=== PATIENT | female | born 1965 | race Caucasian/White ===

== ENCOUNTER 2018-03-19 07:07 | Inpatient (IN) ==
--- NOTE | 2018-03-18 21:58 | Discharge Summary ---
<Dmitry Coughlin - Last Filed: 03/19/18 08:53> Orders not resulted at time of discharge: Pending orders 03/19/18 00:01 XR shoulder complete RT [XR] Routine H/H [Hemoglobin and Hematocrit] [HEME] Routine 03/19/18 08:09 US anesthesia pain block [US] Routine Date of Encounter: 03/19/18 - Hospital Course Hospital course: Ms. Key is a 52 year old female - Time Spent with Patient Total time spent providing and/or coordinating discharge services: - Discharge Medications Home Medications: Amitriptyline HCl 150 mg PO HS 03/03/17 [History] Methocarbamol [Robaxin-750] 750 mg PO TID 03/03/17 [History] Zolpidem [Ambien] 10 mg PO HS PRN 03/03/17 [History] OxyCODONE Immed Rel [Roxicodone 5 MG] 5 mg PO Q6HR PRN 7 Days #28 tablet [Rx] Acetaminophen/Butalbital/Caffe [Fioricet] 1 tab PO Q6HR PRN 03/19/18 [History] Atorvastatin Calcium [Lipitor] 20 mg PO HS 03/19/18 [History] Buspirone HCl [Buspar] 7.5 mg PO BID 03/19/18 [History] Celecoxib [Celebrex] 200 mg PO BID 03/19/18 [History] Quetiapine Fumarate [Seroquel] 200 mg PO HS 03/19/18 [History] Allergies/Adverse Reactions: 3 Allergy/AdvReac Type Severity Reaction Status Date / Time codeine AdvReac Nausea Verified 03/19/18 08:05 Primary care physician: Stormy Ramos - Patient Status Disposition: Home Health Service Condition: Good - Discharge Instructions Follow Up With: Stormy Ramos [Primary Care Provider] - Additional Instructions: Discharge Instructions: Total Shoulder Please call [facility] ([phone]), your Primary Care Physician, or report to the Emergency Room if you have any of the following symptoms: Nausea, vomiting, fever greater that 101.5, swelling, chest pain, shortness of breath, increased pain/redness/drainage/odor for your incision site, numbness/ tingling, or any other concerning symptoms. ACTIVITY: Always keep your arm in the sling. Do not raise your arm away from your body. Do not use your arm to help with getting in or out of bed. No weight bearing permitted. Only perform those exercises given to you by your therapist. Incentive Spirometer 10 times an hour. MEDICATIONS: Upon discharge resume your home medications. Take all the medications as prescribed. Take a stool softener if taking narcotic pain medications. Stool softeners are only effective if you drink enough fluids. Drink 6-8 glass of water or fluids a day, unless this is not allowed for another health problem. Despite using stool softeners, if you haven't had a bowel movement in 3 days, please switch to a gentle laxative. Gentle laxatives are sold over the counter. You should have a bowel movement within 24 hours, if not call the office. You will be discharged from the hospital with a prescription for pain medication. You are encouraged to decrease the use of narcotic pain medication as tolerated. Should you require a refill, please call the office. [facility] prescribes narcotic pain medication for only 4-6 weeks after surgery. If you require pain medication beyond this time period, you may be referred to your Primary Care Physician or to the Pain Clinic for further evaluation. Plan ahead for refills on pain medication as many narcotics either need to be picked up at the office or mailed. It is best to call 48-72 hours in advance of needing a prescription refill so you don't run out of medication. To help control the post-operative pain, you may take NSAIDs (Aleve,Advil, Motrin, Ibuprofen, Naprosyn) or Tylenol as prescribed on the bottle in addition to the pain medication. WOUND CARE: Leave the dressing on for 7-10 days. You may change the dressing if it becomes saturated greater than 50%. Do not get the dressing wet at anytime. Wash your hands with antibacterial soap, rinse and dry prior to any wound care. If you have estefany the visiting nurse or rehab facility can remove the stapes 10-14 days after surgery and place steri-strips across the wound. Leave the steri-strips in place until they fall off on their own. You may let water from the shower run on top of the steri-strips. If you do not have a visiting nurse or rehab facility, you will need to return to the office at 10-14 days for the estefany to be removed. If you have itching or redness around the dressing call the office. FOLLOW-UP: Please follow up with your surgeon in the orthopedic clinic, as scheduled <Cornelia Alvares - Last Filed: 03/19/18 17:26> Date of Encounter: 03/19/18 Time of Encounter: 17:26 - Discharge Diagnosis (1) Status post reverse total arthroplasty of right shoulder Priority: Primary Status: Acute Comments: Opsite dressing, leave intact until first post-operative visit. Zipline in place , plan to remove at post-operative day #14-16. If dressing becomes >50% saturated, contact office, remove dressing and place appropriate dressing in its place. Do not allow for dressing to get wet. Shoulder Precautions x 6 weeks. Apply cold therapy wrap 3-6x/day for 20 minutes at a time. Encourage ambulation throughout the day. Use Incentive spirometer 10x/hour. Elevate affected extremity above heart as tolerated. NWB to affected upper extremity x 6 weeks. Will remove brace at first post-operative appointment. OK to remove during PT/ OT and Home exercises. (2) Rotator cuff arthropathy of right shoulder Priority: Primary Status: Acute (3) Tobacco use Priority: Secondary Status: Acute (4) Depression Priority: Secondary Status: Chronic Qualifiers: Depression Type: unspecified Qualified Code(s): F32.9 - Major depressive disorder, single episode, unspecified - Hospital Course Hospital course: Ms. Key is a 52 year old female, status post - Right TSR-reverse. . Patient had uneventful postoperative course. Stable for discharge. She had nausea, scopalamine patch given. Patient seen at bedside, without complaints. A&O x 3 Afebrile, vital signs stable. BP must be stable before discharge Vital Signs Temp Pulse Resp BP Pulse Ox 03/19/18 16:43 98.3 F 95 16 106/67 95 03/19/18 12:42 98.0 F 89 100/63 98 03/19/18 11:59 98.0 F 86 16 100/64 98 03/19/18 11:30 97.9 F 78 18 100/67 99 03/19/18 11:11 98.4 F 78 16 110/66 100 03/19/18 11:01 98.4 F 76 16 110/59 100 03/19/18 10:51 75 14 110/68 100 03/19/18 10:41 75 16 121/64 100 03/19/18 10:31 98.5 F 76 16 115/77 100 03/19/18 09:14 71 89/61 97 03/19/18 08:52 88 101/64 95 03/19/18 07:28 98.5 F 88 18 126/77 97 Intake and Output 03/19/18 03/19/18 03/19/18 07:59 15:59 23:59 Intake Total 500 / 500 Output Total 50 / 50 Balance 450 / 450 Intake: IV Fluids 500 / 500 0.9 % Sodium Chloride 500 ML @ 500 / 500 999 mls/hr IVC .Q31M ONE Rx#: [id number] Output: Estimated Blood Loss 50 / 50 Other: # Voids 1 Weight 55.792 kg Patient Weight 03/19/18 23:59 Weight 55.792 kg Labs reviewed. H/H - stable, asymptomatic Short CBC 03/19/18 Range/Units 10:57 Hgb 11.8 (11.5-15.4) g/dL Hct 36.8 (35.3-44.9) % Pain control: adequate Participating in PT. All questions and concerns addressed. Educated on use of incentive spirometer. Encouraged ambulation and proper hydration. Patient educated on post-operative restrictions and post-operative care. Assessment and plan: Continue with postoperative care Discharge plan: Home with HH, discharge today - Time Spent with Patient Total time spent providing and/or coordinating discharge services: Date of admission: 03/19 Primary care physician: Stormy Ramos Discharging clinician: Cornelia Alvares Anticipated date of discharge: 03/19/18 - Patient Status Overall status at discharge: patient is progressing back to baseline
--- NOTE | 2018-03-18 22:17 | Physician Discharge Referral ---
<Dmitry Coughlin - Last Filed: 03/19/18 08:52> - Respiratory Orders Smoking Cessation: Smoking cessation has been advised. For more information, call the [place] Tobacco Quit Line at 6-670-ZNON-NOW. - Transfer Medications Home Medications: Amitriptyline HCl 150 mg PO HS 03/03/17 [History] Methocarbamol [Robaxin-750] 750 mg PO TID 03/03/17 [History] Zolpidem [Ambien] 10 mg PO HS PRN 03/03/17 [History] OxyCODONE Immed Rel [Roxicodone 5 MG] 5 mg PO Q6HR PRN 7 Days #28 tablet [Rx] Acetaminophen/Butalbital/Caffe [Fioricet] 1 tab PO Q6HR PRN 03/19/18 [History] Atorvastatin Calcium [Lipitor] 20 mg PO HS 03/19/18 [History] Buspirone HCl [Buspar] 7.5 mg PO BID 03/19/18 [History] Celecoxib [Celebrex] 200 mg PO BID 03/19/18 [History] Quetiapine Fumarate [Seroquel] 200 mg PO HS 03/19/18 [History] Allergies/Adverse Reactions: 3 Allergy/AdvReac Type Severity Reaction Status Date / Time codeine AdvReac Nausea Verified 03/19/18 08:05 Certification: Further, I certify that my clinical findings support that this patient is homebound (i.e. absences from home require considerable and taxing effort and are for medical reasons or yarsani services or infrequently or short duration when for other reasons) because: Homebound Reason: Post-surgery restriction and or conditions limit ability to leave home Attestation: My signature below is to certify that this patient is under my care and that I, or nurse practitioner, or a physician's teachers assistant working with me, has a face-to -face encounter with this patient. <Cornelia Alvares - Last Filed: 03/20/18 16:03> Home Health/Hosp Referral Info Transfer to: Home Health Attending Provider: Provider in Charge Post Discharge: PCP - Diagnosis (1) Rotator cuff arthropathy of right shoulder Priority: Primary Status: Acute (2) Status post reverse total arthroplasty of right shoulder Priority: Primary Status: Acute (3) Tobacco use Status: Acute (4) Depression Status: Chronic - Respiratory Orders None Smoking Cessation: Smoking cessation has been advised. For more information, call the [place] Tobacco Quit Line at 0-450-PJXO-NOW. - Diet/Nutrition Diet/Nutrition Orders: Regular - Activity Activity Orders: Up ad santo, Ambulate Activity: List: Opsite dressing, leave intact until first post-operative visit. Zipline in place , plan to remove at post-operative day #14-16. If dressing becomes >50% saturated, contact office, remove dressing and place appropriate dressing in its place. Do not allow for dressing to get wet. Shoulder Precautions x 6 weeks. Apply cold therapy wrap 3-6x/day for 20 minutes at a time. Encourage ambulation throughout the day. Use Incentive spirometer 10x/hour. Elevate affected extremity above heart as tolerated. NWB to affected upper extremity x 6 weeks. Will remove brace at first post-operative appointment. OK to remove during PT/ OT and Home exercises. - Services Needed Following services are medically necessary services: Nursing, Home Health Aide, Physical Therapy, Occupational Therapy Home Care Orders: Opsite dressing, leave intact until first post-operative visit. Zipline in place , plan to remove at post-operative day #14-16. If dressing becomes >50% saturated, contact office, remove dressing and place appropriate dressing in its place. Do not allow for dressing to get wet. Shoulder Precautions x 6 weeks. Apply cold therapy wrap 3-6x/day for 20 minutes at a time. Encourage ambulation throughout the day. Use Incentive spirometer 10x/hour. Elevate affected extremity above heart as tolerated. NWB to affected upper extremity x 6 weeks. Will remove brace at first post-operative appointment. OK to remove during PT/ OT and Home exercises. Certification: Further, I certify that my clinical findings support that this patient is homebound (i.e. absences from home require considerable and taxing effort and are for medical reasons or yarsani services or infrequently or short duration when for other reasons) because: Homebound Reason: Post-surgery restriction and or conditions limit ability to leave home Attestation: My signature below is to certify that this patient is under my care and that I, or nurse practitioner, or a physician's teachers assistant working with me, has a face-to -face encounter with this patient.
[2018-03-19] MEDS ORDERED: *HR* Labetalol 20 MG/4 ML SYRINGE IVP PRN (07:38)
[2018-03-19] MEDS ORDERED: *HR* Promethazine 25 MG/ML VIAL IVP PRN (07:38)
[2018-03-19] MEDS ORDERED: Ondansetron 4 MG/2 ML VIAL IVP ONE (07:38)
[2018-03-19] MEDS ORDERED: Dexamethasone 4 MG/ML VIAL IVP ONE (07:38)
[2018-03-19] MEDS ORDERED: *HR* HYDROmorphone (PF) 1 MG/ML SYRINGE IVP PRN (07:38)
[2018-03-19] MEDS ORDERED: Lidocaine -MPF 4% 5 ML AMPUL ONE (07:40)
[2018-03-19] MEDS ORDERED: Ondansetron 4 MG/2 ML VIAL ONE (07:40)
[2018-03-19] MEDS ORDERED: *HR* Succinylcholine 200 MG/10 ML VIAL IVP ONE (07:40)
[2018-03-19] MEDS ORDERED: *HR* FentaNYL (PF) 100 MCG/2 ML VIAL ONE (07:40)
[2018-03-19] MEDS ORDERED: Lidocaine -MPF 2% 2 ML VIAL ONE (07:40)
[2018-03-19] MEDS ORDERED: Dexamethasone 4 MG/ML VIAL ONE (07:40)
[2018-03-19] MEDS ORDERED: *HR* Propofol 200 MG/20 ML VIAL IVP ONE (07:40)
[2018-03-19] MEDS ORDERED: *HR* Midazolam HCl 2 MG/2 ML VIAL ONE (07:40)
[2018-03-19] MEDS ORDERED: Albuterol 2.5 MG/3 ML NEBULIZER IH ONE (07:47)
[2018-03-19] MEDS ORDERED: CeFAZolin Syr 2,000MG/20 ML 2,000 MG/20 ML SYRINGE IVPB ONE (07:47)
[2018-03-19] MEDS ORDERED: Albuterol 2.5 MG/3 ML NEBULIZER ONE (07:50)
--- NOTE | 2018-03-19 07:57 | Anesthesia Evaluation PreOp ---
Date of Encounter: 03/19/18 Time of Encounter: 08:09 - Past History Planned Operation: RIGHT TOTAL SHOULDER REPLACEMENT Cardiac History: Denies any Significant Hx Pulmonary History: Smoker, COPD INFORMATION BROKER History: Other (ANXIETY, DEPRESSION, INSOMNIA) Other Medical History: Denies Any Significant HX Anesthesia History: No Prior Anesthetic Complications, Past Anesthesia (SEVERAL) Alcohol Use: none Drug use: none Medications and Allergies Albuterol Sulfate [Ventolin Hfa] 2 puff IH Q4H PRN 03/03/17 [History] Amitriptyline HCl 150 mg PO HS 03/03/17 [History] Methocarbamol [Robaxin-750] 750 mg PO TID 03/03/17 [History] Quetiapine Fumarate [Seroquel] 200 - 400 mg PO DAILY 03/03/17 [History] Zolpidem [Ambien] 10 mg PO HS 03/03/17 [History] Ibuprofen [Motrin] 600 mg PO Q8HR #20 tab 06/08/17 [Rx] clonazePAM [Klonopin] 0.5 mg PO TID 06/08/17 [History] Ibuprofen [Motrin] 600 mg PO Q8HR PRN #20 tab 11/08/17 [Rx] OxyCODONE Immed Rel [Roxicodone 5 MG] 5 mg PO Q6HR PRN 7 Days #28 tablet [Rx] 3 Allergy/AdvReac Type Severity Reaction Status Date / Time codeine AdvReac Nausea Verified 03/19/18 08:05 - Meds/Allergy Pre-op Review Medications Reviewed: Yes Allergies Reviewed: Yes Beta Blockers on Current Med List: No Anesthesia Results - Labs Laboratory Last Values WBC 6.6 K/mcL (4.3-11.1) 03/06/18 13:50 RBC 4.13 M/mcL (3.82-4.97) 03/06/18 13:50 Hgb 12.9 g/dL (11.5-15.4) 03/06/18 13:50 Hct 39.6 % (35.3-44.9) 03/06/18 13:50 MCV 95.9 fL (83.0-100.0) 03/06/18 13:50 MCH 31.2 pg (28.0-33.3) 03/06/18 13:50 MCHC 32.6 g/dL (31.6-35.5) 03/06/18 13:50 RDW 12.6 % (11.5-14.5) 03/06/18 13:50 Plt Count 338 K/mcL (140-400) 03/06/18 13:50 MPV 9.5 fL (9.4-12.4) 03/06/18 13:50 Immature Gran % 0.3 % (0-4) 03/06/18 13:50 Seg Neutrophils % 37.0 % 03/06/18 13:50 Lymphocytes % 47.6 % 03/06/18 13:50 Monocytes % 9.5 % 03/06/18 13:50 Eosinophils % 4.7 % 03/06/18 13:50 Basophils % 0.9 % 03/06/18 13:50 Neutrophils # 2.5 K/mcL (1.6-8.9) 03/06/18 13:50 Lymphocytes # 3.2 K/mcL (0.6-4.6) 03/06/18 13:50 Monocytes # 0.6 K/mcL (0.0-1.3) 03/06/18 13:50 Eosinophils # 0.3 K/mcL (0.0-0.6) 03/06/18 13:50 Basophils # 0.1 K/mcL (0.0-0.2) 03/06/18 13:50 PT 10.7 Seconds (9.4-12.1) 03/06/18 13:50 INR 1.0 03/06/18 13:50 APTT 32.8 Seconds (26.0-36.0) 03/06/18 13:50 Sodium 137 mEq/L (136-145) 03/06/18 13:50 Potassium 3.7 mEq/L (3.5-5.1) 03/06/18 13:50 Chloride 106 mEq/L (98-107) 03/06/18 13:50 Carbon Dioxide 23 mEq/L (23-29) 03/06/18 13:50 BUN 5 mg/dL (6-20) L 03/06/18 13:50 Creatinine 0.68 mg/dL (0.60-1.20) 03/06/18 13:50 Est GFR ( Amer) > 60 (> 60) 03/06/18 13:50 Est GFR (Non-Af Amer) > 60 (> 60) 03/06/18 13:50 BUN/Creatinine Ratio 7 (6-26) 03/06/18 13:50 Anesthesia Exam O2 Sat Height 1.57 m Height 1.57 m Weight 55.792 kg Weight 55.792 kg O2 Sat by Pulse Oximetry 97 Vital Signs Temp Pulse Resp BP Pulse Ox 98.5 F 88 18 126/77 97 03/19/18 07:28 03/19/18 07:28 03/19/18 07:28 03/19/18 07:28 03/19/18 07:28 - HEENT Mallampati: II Teeth: Poor dentition (MISSING TEETH, BROKEN TEETH) Oral Opening: Greater than 3 - Cardiac Rhythm: Regular - Pulmonary Breath Sounds: bilateral Clear Respiratory Effort: Symmetrical Anesthesia Assess/Plan ASA Score: 2 Anesthetic Plan: General, Regional (FOR POST OPERATIVE PAIN) Monitoring Plan: Standard Monitors Recovery Plan: PACU
[2018-03-19] MEDS ORDERED: Ringers Solution, Lactated 1,000 ML IVC SCH ×2 (08:00→11:33)
--- NOTE | 2018-03-19 08:19 | History & Physical Report ---
Date of Encounter: 03/19/18 Time of Encounter: 08:19 24 Hour HP Update - Instructions Instructions: If the History and Physical is less than 30 days old and was completed prior to A.M. admission and or procedure and has NOT been updated on calendar day of procedure please complete this update prior to performing procedure. - Update Patient reports changes in Medical Condition: No Changes in examination, assessment, or condition: No Changes in Medication: No Preop tests/diagnostics Reviewed: Yes Surgery Remains Indicated: Yes Consent for Planned Operative Procedure(s) Verified: Yes - Pre-Operative Checklist Preoperative Checklist Indicated: No Prophylactic Antibiotic Ordered: Yes Is VTE Prophylaxis Indicated?: NO
[2018-03-19] MEDS ORDERED: ROPIVACAINE HCL/PF 0.5% 30 ML VIAL ONE (08:29)
[2018-03-19] MEDS ORDERED: Bupivacaine/Clonidine Syringe 1 EACH SYRINGE ONE (08:30)
--- NOTE | 2018-03-19 09:08 | Anesthesia Procedures ---
Date of Encounter: 03/19/18 Time of Encounter: 09:06 Procedures: Anesthesia - Nerve Block Procedure Date: 03/19/18 Time: 09:06 Allergies/Adv Reactions: codeine Pre-op Diagnosis: R shoulder RTC arthropathy Surgical Procedure: R TSR, Reverse Ball & Socket Checklist: Correct Patient Identifier, Correct procedure, History checked Correct side: Right Blood Thinner: No Monitor Applied: EKG, BP, Pulse Oximetry Supplemental Oxygen via Nasal Cannula (L/min): 3 Sedation: Versed (mg): 2 Sedation: Fentanyl (mcg): 100 Indication: Post Op Analgesia (requested by Dr. Coughlin for post-op pain management) Pre-op Neuro Deficits: No Block Type: Supraclavicular, Other (ICB, SCP) Catheter placed: No Sterile Technique: Yes Ultrasound used: Yes Anatomy identified: Yes Visual spread of Local: Yes Neuro Stimulation: No Blood on Needle Aspiration: No Smooth Injection of Local: Yes Pain with Injection of Local: No Prep: Chlorhexadine Needle: 22 x 50 mm Stimuplex Local: 0.25% Bupivicaine w/Clonidine 20 mcg/cc (5mL for SCP; 5mL for ICB), Ropivacaine (30mL for 0.5% + 4mg dexamethasone for supraclavicular n. block) Number of Attempts: 1 Complications: None/effective block Vitals: see Irma WORRELL's electronic records for VS entry
[2018-03-19] MEDS ORDERED: *HR* PHENYLEPHRINE 1,000 MCG/10 ML SYRINGE IVP ONE ×2 (09:32→09:57)
[2018-03-19] MEDS ORDERED: EPHEDrine 50 MG/ML VIAL ONE (09:54)
[2018-03-19] MEDS ORDERED: Water for inj. (sterile) 10 ML IV ONE (09:54)
--- NOTE | 2018-03-19 10:18 | Orthopedic Operative Note ---
Date of procedure: 03/19/18 Pre-op diagnosis: Right shoulder cuff tear arthropathy Post-op diagnosis: same Procedure: Procedure: Total Shoulder Replacment Reverse, right Estimated blood loss: 50 cc Hardware: Metal and polyethylene replacement: Arthrex 24, +2 , 25 screw glenoid baseplate, 2 4.5 screws. 2 5.5 screw, 39+4 glenosphere, 6 apex humeral stem, poly insert 3 Exam Under anesthesia: Full motion no instability Procedural Notes: Irreparable tear supraspinatus Operative procedure: The patient was brought to the operating room and placed on the operating room table. After general anesthesia was administered the operative shoulder was examined. Findings were noted. The patient was placed in the modified beachchair position. All pressure points were padded appropriately. And the head was stabilized in the neutral position. The operative extremity was prepped and draped in the sterile surgical fashion. The patient received IV antibiotics prior to skin incision. A standard deltopectoral approach was made to the operative shoulder. Incision was made to the skin and subcutaneous tissue,hemo stasis was obtained with Bovie cautery. Using careful blunt dissection the cephalic vein was identified and mobilized medially. The deltopectoral interval was developed and the clavipectoral fascia was incised. The subscap was released off the lesser tuberosity and tagged with #2 FiberWire suture subscap irreparable. The humerus was dislocated patient noted to have irreparable tear supraspinatus tendon, and the humeral cut was made along the anatomic neck. Anterior and posterior Bankart retractors were placed to expose the glenoid. The glenoid guide was seated and the centering hole was made. It was reamed with the appropriate reamer. The 24+2, 25 mm screw baseplate was seated and secured with (2) 4.5 screws and 2 5.5 screw. The baseplate was irrigated and dried and the 39+4 Glenosphere was seated and secured with the Andino taper. The Andino taper was tested and found to be secure the humerus was redislocated and prepared with the diaphyseal reamers, followed by a broaching process up to the appropriate size 6 apex in the patient 's anatomic version. The metaphyseal reamer was then utilized. Trial reduction found the shoulder to be relocatable. Trial components were removed and 6 apex stem was impacted in place in the patient's anatomic version. Trial reduction found the shoulder to be relocatable and stable with the appropriate 3 Trial component was removed and the real implant was seated and secured the shoulder was reduced. The shoulder had excellent motion and excellent stability and no evidence of dislocation. The deep tissue was irrigated with pulse irrigation. The PA close the shoulder. The deltopectoral interval was closed with a running #1 PDS suture, subcutaneous tissue was irrigated and closed with 0 PDS suture, the skin was closed with Dermabond. The patient was placed in a sterile dressing, abduction brace and extubated. The patient was then transferred to the recovery room in stable condition. Anesthesia: GISELL Surgeon: Dmitry Coughlin Was there an assistant news director present: Yes Power Shovel Mechanic: Cornelia Alvares Estimated blood loss (cc): 50 Condition: stable Disposition: PACU
--- NOTE | 2018-03-19 11:08 | Anesthesia Evaluation Post Op ---
Date of Encounter: 03/19/18 Time of Encounter: 11:08 - Discharge PostOp Status: Transfer Patient to floor (Patient's vital signs have been reviewed. Patient is stable postoperatively and has adequately recovered from anesthesia. Patient is determined to have stable airway patency and respiratory function including respiratory rate and oxygen saturation. Patient has a stable heart rate, blood pressure and adequate hydration. Patients mental status is acceptable. Patients temperature is appropriate. Pain and nausea are adequately controlled.)
[2018-03-19 11:24] LABS: Hematocrit 36.8 % (35.3-44.9); Hemoglobin 11.8 g/dL (11.5-15.4)
[2018-03-19] MEDS ORDERED: traMADol 50 MG TABLET PO PRN (11:33)
[2018-03-19] MEDS ORDERED: Temazepam 15 MG CAPSULE PO PRN (11:33)
[2018-03-19] MEDS ORDERED: *HR* OxyCODONE Immed Rel 5 MG TABLET PO PRN (11:33)
[2018-03-19] MEDS ORDERED: Methocarbamol 750 MG TABLET PO SCH (11:33)
[2018-03-19] MEDS ORDERED: *HR* OxyCODONE/APAP 5/325 TABLET PO PRN (11:33)
[2018-03-19] MEDS ORDERED: Sennosides 8.6 MG TABLET PO PRN (11:33)
[2018-03-19] MEDS ORDERED: Naloxone 0.4 MG/ML INJ IVP PRN (11:33)
[2018-03-19] MEDS ORDERED: MOM Conc 10 ML UD.LIQ PO PRN (11:33)
[2018-03-19] MEDS ORDERED: Ondansetron 4 MG/2 ML VIAL IVP PRN (11:33)
[2018-03-19] MEDS ORDERED: Acetaminophen/Butalbital/CaffeineTABLET PO PRN (11:33)
[2018-03-19] MEDS ORDERED: 0.9 % Sodium Chloride 500 ML IVC ONE (13:21)
[2018-03-19 16:44] VITALS: BP 106/67
[2018-03-19] MEDS ORDERED: Scopolamine Patch 1.5 MG PATCH.TD72 TD ONE (16:53)
[2018-03-19] MEDS ORDERED: *HR* Enoxaparin 30 MG/0.3 ML SYRINGE SQ SCH ×2 (18:00)
== END 2018-03-19 17:32 | disposition home health service (06) | DRG 315 ==
LOC: SAMDAY 07:07 → 3NENU 11:24
PROVIDERS: ADMIT Orthopaedic Surgery; ATTEND Orthopaedic Surgery

== ENCOUNTER 2018-07-06 11:02 | Observation (INO) ==
[2018-07-06] MEDS ORDERED: Acetaminophen 325 MG TABLET PO ONE (11:48)
--- NOTE | 2018-07-06 12:07 | Emergency Department Note ---
Disposition Clinical Impression: Cellulitis, gluteal, right Cellulitis Qualifiers: Site of cellulitis: buttock Qualified Code(s): L03.317 - Cellulitis of buttock Disposition: Admitted As Inpatient Condition: Fair Time of Disposition: 13:51 Skin/Abscess/FB HPI Chief complaint: ED Skin/Abscess/Foreign Body Stated complaint: Abscess Time Seen by Provider: 07/06/18 11:17 Source: patient Limitations: no limitations Nursing Notes Reviewed: Yes Vital Signs Reviewed: Yes HPI Narrative: Patient is a 52-year-old female presenting to [facility] ED for a 1 week history of abscess formation. Patient states 1 week ago she felt what she believes was a pimple forming in the right gluteal fold which has grown in size and worsening pain over the last week. Patient states that she has no history of abscess formation assess his never had an incision and drainage performed. Patient states that she has no past medical history with the exception of a complete right shoulder repair done in March 2018. Patient denies any further surgical history. Upon initial evaluation patient is awake, alert, engaged to conversation answering questions appropriately, she is nondiaphoretic, non-cyanotic, appears to be in no acute distress and there are no overt focal neurological deficits appreciated. Patient admits to a headache which she states she believes is due to her blood pressure and has been recently recurrent in nature. Patient denies vision changes, tinnitus, neck or back pain, chest pain/shortness of breath, abdominal pain/nausea/vomiting/diarrhea/constipation, hematuria/hematochezia, numbness and paresthesias in the extremities or difficulty with ambulation. Pt Subjective Complaint: abscess/boil Onset (ago): week(s) Location: buttocks Quality: sharp Consistency: Worsening Associated symptoms: Reports: denies other symptoms Treatments prior to arrival: none Home Medications Medication Instructions Recorded Confirmed RX: Amitriptyline HCl 150 mg PO HS 03/03/17 03/19/18 RX: Methocarbamol [Robaxin-750] 750 mg PO TID 03/03/17 03/19/18 RX: Zolpidem [Ambien] 10 mg PO HS PRN 03/03/17 03/19/18 Acetaminophen/Butalbital/Caffe 1 tab PO Q6HR PRN 03/19/18 03/19/18 [Fioricet] Atorvastatin Calcium [Lipitor] 20 mg PO HS 03/19/18 03/19/18 Buspirone HCl [Buspar] 7.5 mg PO BID 03/19/18 03/19/18 Celecoxib [Celebrex] 200 mg PO BID 03/19/18 03/19/18 Quetiapine Fumarate [Seroquel] 200 mg PO HS 03/19/18 03/19/18 Previous Rx's Medication Instructions Recorded RX: OxyCODONE Immed Rel 5 mg PO Q6HR PRN 7 Days #28 tablet 03/18/18 [Roxicodone 5 MG] Allergies Allergy/AdvReac Type Severity Reaction Status Date / Time codeine AdvReac Nausea Verified 03/19/18 08:05 All systems ED: reviewed and negative except as stated. Review of Systems: As Per HPI Past Medical History - Past Medical History Medical history: Reports: no medical history Surgical history: Reports: hysterectomy Psychiatric history: Reports: anxiety, depression PLUGMAN history: Reports: no PLUGMAN history - Social History Smoking Status: Current every day smoker Smokeless Tobacco Status: No Alcohol use: Reports: none Drug use: Reports: none Physical Exam - General Limitations: no limitations General appearance: alert, in no apparent distress - Head Head exam: atraumatic, normocephalic, normal inspection - Eye Eye exam: Present: normal appearance, PERRL, EOMI. Absent: scleral icterus - Neck Neck exam: Present: normal inspection, trachea midline - Chest Chest inspection: Present: normal inspection, symmetric chest wall rise - Respiratory Respiratory exam: Present: normal lung sounds bilaterally. Absent: respiratory distress, wheezes, stridor, accessory muscle use, prolonged expiratory phase - Cardiovascular Cardiovascular exam: Present: regular rate, normal heart sounds, +S1, +S2. Absent: systolic murmur, diastolic murmur, JVD, +S3, +S4 - Abdominal Exam Abdominal exam: Present: soft, Non-Tender, normal bowel sounds. Absent: tenderness, distention, guarding, rebound, rigidity - Neurological Exam Neurological exam: Present: alert, oriented X3 - Psychiatric Psychiatric exam: Present: normal affect, normal mood - Skin Skin exam: Present: warm, dry, intact, normal color. Absent: cyanosis, diapho resis, erythema, pallor, mottled Course Course Narrative: Bedside ultrasound shows no discernible drainable fluid collection Patient states that her to be admitted for inpatient management of cellulitis Patient to be started on vancomycin and Zosyn for antibiotic coverage in light of known MRSA-positive status Admission planning discussed at length with patient and patient verbalizes understanding and agreement with this plan. Vital Signs Temperature 98.7 F 07/06/18 11:09 Pulse Rate 121 07/06/18 11:09 Respiratory Rate 16 07/06/18 11:09 Blood Pressure 137/79 07/06/18 11:09 O2 Sat by Pulse Oximetry 98 07/06/18 11:09 Temperature 98.7 F 07/06/18 11:09 Pulse Rate 85 07/06/18 13:45 Respiratory Rate 16 07/06/18 14:04 Blood Pressure 129/85 07/06/18 14:04 O2 Sat by Pulse Oximetry 96 07/06/18 13:45 Oxygen Delivery Oxygen Delivery Room Air Procedures - Ultrasound-Other Narrative: Bedside ultrasound performed on area cellulitic change on right buttocks and gluteal cleft. Ultrasound imaging performed and interpreted by me. There are no areas of discrete, drainable fluid collection Skin/Abscess/Foreign Body - MDM Narrative Medical decision making narrative: Laboratory results significant for elevated white blood cell count Patient continues to be tachycardic despite fluid management Patient admitted to hospitalist medicine service for management of cellulitis Patient is hemodynamically stable time of admission - Lab Data Lab results reviewed: Yes I reviewed the patient's lab results. Result diagrams: 07/06/18 12:35 07/06/18 12:35 Lab Results 07/06/18 07/06/18 07/06/18 Range/Units 12:35 12:35 12:35 WBC 15.5 H (4.3-11.1) K/mcL RBC 4.24 (3.82-4.97) M/mcL Hgb 13.7 (11.5-15.4) g/dL Hct 40.5 (35.3-44.9) % MCV 95.5 (83.0-100.0) fL MCH 32.3 (28.0-33.3) pg MCHC 33.8 (31.6-35.5) g/dL RDW 13.0 (11.5-14.5) % Plt Count 326 (140-400) K/mcL MPV 9.2 L (9.4-12.4) fL Immature Gran % 0.6 (0-4) % Seg Neutrophils % 74.6 % Lymphocytes % 16.5 % Monocytes % 7.4 % Eosinophils % 0.5 % Basophils % 0.4 % Neutrophils # 11.6 H (1.6-8.9) K/mcL Lymphocytes # 2.6 (0.6-4.6) K/mcL Monocytes # 1.2 (0.0-1.3) K/mcL Eosinophils # 0.1 (0.0-0.6) K/mcL Basophils # 0.1 (0.0-0.2) K/mcL Sodium 136 (136-145) mEq/L Potassium 4.0 (3.5-5.1) mEq/L Chloride 103 (98-107) mEq/L Carbon Dioxide 25 (23-29) mEq/L BUN 8 (6-20) mg/dL Creatinine 0.73 (0.60-1.20) mg/dL Est GFR ( Amer) > 60 (> 60) Est GFR (Non-Af Amer) > 60 (> 60) BUN/Creatinine Ratio 11 (6-26) Glucose 107 H (70-105) mg/dL Calculated Osmolality 281 (280-300) Lactic Acid 1.1 (0.5-2.2) mmol/L Calcium 9.7 (8.6-10.3) mg/dL
[2018-07-06] MEDS ORDERED: 0.9 % Sodium Chloride 1,000 ML IVC ONE (12:24)
[2018-07-06 12:47] LABS: Basophils # 0.1 K/mcL (0.0-0.2); Basophils % 0.4 %; Eosinophils # 0.1 K/mcL (0.0-0.6); Eosinophils % 0.5 %; Hematocrit 40.5 % (35.3-44.9); Hemoglobin 13.7 g/dL (11.5-15.4); Immature Granulocytes % 0.6 % (0-4); Lymphocytes # 2.6 K/mcL (0.6-4.6); Lymphocytes % 16.5 %; Mean Corpuscular HGB Conc 33.8 g/dL (31.6-35.5); Mean Corpuscular Hemoglobin 32.3 pg (28.0-33.3); Mean Corpuscular Volume 95.5 fL (83.0-100.0); Mean Platelet Volume 9.2 fL (9.4-12.4); Monocytes # 1.2 K/mcL (0.0-1.3); Monocytes % 7.4 %; Neutrophils # 11.6 K/mcL (1.6-8.9); Platelet Count 326 K/mcL (140-400); Red Blood Count 4.24 M/mcL (3.82-4.97); Segmented Neutrophils % 74.6 %
[2018-07-06] MEDS ORDERED: Piperacillin/Tazobactam 3.375 GM in 0.9 % Sodium Chloride Mini Bag 100 ML IVPB ONE (13:07)
[2018-07-06] MEDS ORDERED: Ondansetron 4 MG/2 ML VIAL IVP ONE (13:07)
[2018-07-06 13:12] LABS: BUN/Creatinine Ratio 11 (6-26); Blood Urea Nitrogen 8 mg/dL (6-20); Calcium 9.7 mg/dL (8.6-10.3); Carbon Dioxide 25 mEq/L (23-29); Chloride 103 mEq/L (98-107); Glucose 107 mg/dL (70-105); Osmolality,Calculated 281 (280-300); Sodium 136 mEq/L (136-145); eGFR For Non-African Americans > 60 (> 60)
[2018-07-06] MEDS ORDERED: Naloxone 0.4 MG/ML INJ IVP PRN (13:32)
--- NOTE | 2018-07-06 13:42 | Emergency Department Note ---
Disposition Clinical Impression: Cellulitis, gluteal, right Disposition: Admitted As Inpatient Referrals: Stormy Ramos [Primary Care Provider] - General Adult HPI - General Chief complaint: ED Skin/Abscess/Foreign Body Stated complaint: Abscess Time Seen by Provider: 07/06/18 11:17 Source: patient Limitations: no limitations - History of Present Illness Pain Scale: 6 - Related Data Home Medications Medication Instructions Recorded Confirmed Amitriptyline HCl 150 mg PO HS 03/03/17 03/19/18 Methocarbamol [Robaxin-750] 750 mg PO TID 03/03/17 03/19/18 Zolpidem [Ambien] 10 mg PO HS PRN 03/03/17 03/19/18 Acetaminophen/Butalbital/Caffe 1 tab PO Q6HR PRN 03/19/18 03/19/18 [Fioricet] Atorvastatin Calcium [Lipitor] 20 mg PO HS 03/19/18 03/19/18 Buspirone HCl [Buspar] 7.5 mg PO BID 03/19/18 03/19/18 Celecoxib [Celebrex] 200 mg PO BID 03/19/18 03/19/18 Quetiapine Fumarate [Seroquel] 200 mg PO HS 03/19/18 03/19/18 Previous Rx's Medication Instructions Recorded OxyCODONE Immed Rel [Roxicodone 5 5 mg PO Q6HR PRN 7 Days #28 tablet 03/18/18 MG] Allergies Allergy/AdvReac Type Severity Reaction Status Date / Time codeine AdvReac Nausea Verified 03/19/18 08:05 Past Medical History - Past Medical History Medical history: Reports: no medical history Surgical history: Reports: hysterectomy Psychiatric history: Reports: anxiety, depression [employer]PER[employer]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 - Social History Smoking Status: Current every day smoker Smokeless Tobacco Status: No Alcohol use: Reports: none Drug use: Reports: none Physical Exam - General Limitations: no limitations General appearance: alert, in no apparent distress Course Vital Signs Temperature 98.7 F 07/06/18 11:09 Pulse Rate 121 07/06/18 11:09 Respiratory Rate 16 07/06/18 11:09 Blood Pressure 137/79 07/06/18 11:09 O2 Sat by Pulse Oximetry 98 07/06/18 11:09 Temperature 98.7 F 07/06/18 11:09 Pulse Rate 121 07/06/18 11:09 Respiratory Rate 16 07/06/18 11:09 Blood Pressure 137/79 07/06/18 11:09 O2 Sat by Pulse Oximetry 98 07/06/18 11:09 Oxygen Delivery Oxygen Delivery Room Air Medical Decision Making - Lab Data Result diagrams: 07/06/18 12:35 07/06/18 12:35 Lab Results 07/06/18 07/06/18 07/06/18 Range/Units 12:35 12:35 12:35 WBC 15.5 H (4.3-11.1) K/mcL RBC 4.24 (3.82-4.97) M/mcL Hgb 13.7 (11.5-15.4) g/dL Hct 40.5 (35.3-44.9) % MCV 95.5 (83.0-100.0) fL MCH 32.3 (28.0-33.3) pg MCHC 33.8 (31.6-35.5) g/dL RDW 13.0 (11.5-14.5) % Plt Count 326 (140-400) K/mcL MPV 9.2 L (9.4-12.4) fL Immature Gran % 0.6 (0-4) % Seg Neutrophils % 74.6 % Lymphocytes % 16.5 % Monocytes % 7.4 % Eosinophils % 0.5 % Basophils % 0.4 % Neutrophils # 11.6 H (1.6-8.9) K/mcL Lymphocytes # 2.6 (0.6-4.6) K/mcL Monocytes # 1.2 (0.0-1.3) K/mcL Eosinophils # 0.1 (0.0-0.6) K/mcL Basophils # 0.1 (0.0-0.2) K/mcL Sodium 136 (136-145) mEq/L Potassium 4.0 (3.5-5.1) mEq/L Chloride 103 (98-107) mEq/L Carbon Dioxide 25 (23-29) mEq/L BUN 8 (6-20) mg/dL Creatinine 0.73 (0.60-1.20) mg/dL Est GFR ( Amer) > 60 (> 60) Est GFR (Non-Af Amer) > 60 (> 60) BUN/Creatinine Ratio 11 (6-26) Glucose 107 H (70-105) mg/dL Calculated Osmolality 281 (280-300) Lactic Acid 1.1 (0.5-2.2) mmol/L Calcium 9.7 (8.6-10.3) mg/dL Attestation Statement - Attestation Attestation: I examined this patient and my medical decision-making was reviewed with the Resident Physician. I agree with the documented findings, disposition and treatment plan as described except to the extent set forth below. 52 year old female presents to the ED with complaints right gluteal cellutlis which started at one week ago after she popped small pimple in the cleft. Doesnot appaer to be perirectal or anal. Natividad has a 3x5 inche indurated area without weeping or fluncutant drainage. Bedside ultrasound does not show a fluid collection to be able to drain. Natividad does have cellulitis with eyrthamatoud changes and tender and wam to touch. Medicial decision making with natividad and she has decide to be admitted to medicine for IV ABX.
--- NOTE | 2018-07-06 15:33 | Internal Med History&Physical ---
Date of Encounter: 07/06/18 Time of Encounter: 15:00 Internal Medicine - H&P: HPI Chief complaint: Right buttock swelling of about a week's duration History of present illness: Ms. Key is a 52 year old female with pmh of major depressive disorder, anxiety presenting with complaintds of right buttock swelling and pain of about a week's duration. Patient says she initially noted what appeared to be a bump on her right buttock, that she thought might have been an ingrown hair, but the area, began to get red and more painful. The bump/boil also got bigger causing significant discomfort on sitting down. There has been no drainage from the site, she denies any fevers or chills. she also denies any other acute symptoms such as nausea and vomiting. In the ER, an ultrasound was performed showing no drainable fluid collection. She was started on antibiotics with vanc and zosyn and she is being admitted for further management Past Med Surg Social Fam HX - Past Medical History Medical history: no medical history Additional medical history: low back pain, major depressive disorder, mitral valve disorder patient denies, tobacco use disorder Psychiatric history: anxiety, depression - Past Surgical History Surgical History: hysterectomy Additional surgical history: Left shoulder scope, right shoulder scope - Social History Smoking Status: Current every day smoker Smokeless Tobacco Status: No Alcohol use: none Drug use: none Internal Medicine - H&P: Meds Amitriptyline HCl 150 mg PO HS 03/03/17 [History] Methocarbamol [Robaxin-750] 750 mg PO TID 03/03/17 [History] Zolpidem [Ambien] 10 mg PO HS PRN 03/03/17 [History] OxyCODONE Immed Rel [Roxicodone 5 MG] 5 mg PO Q6HR PRN 7 Days #28 tablet 03/18/18 [Rx] Acetaminophen/Butalbital/Caffe [Fioricet] 1 tab PO Q6HR PRN 03/19/18 [History] Atorvastatin Calcium [Lipitor] 20 mg PO HS 03/19/18 [History] Buspirone HCl [Buspar] 7.5 mg PO BID 03/19/18 [History] Celecoxib [Celebrex] 200 mg PO BID 03/19/18 [History] Quetiapine Fumarate [Seroquel] 200 mg PO HS 03/19/18 [History] Allergy/AdvReac Type Severity Reaction Status Date / Time codeine AdvReac Nausea Verified 03/19/18 08:05 All Systems PM: A 10-system review of systems was performed and is negative for pertinent findings except as documented above in the HPI. - Constitutional Constitutional: no chills, no fever(s), no night sweats - EENT Eyes: no change in vision, no discharge, no pain, no photophobia Ears: no ear discharge, no ear pain, no tinnitus Nose, mouth and throat: no dysphagia, no nasal discharge, no neck pain, no sore throat - Cardiovascular Cardiovascular ROS IM: no chest pain, no diaphoresis, no dyspnea, no lightheadedness, no palpitations, no syncope - Respiratory Respiratory: no cough, no dyspnea, no wheezing, no excessive phlegm production - Gastrointestinal Gastrointestinal: no abdominal pain, no diarrhea, no hematemesis, no hematochezia, no melena, no nausea, no vomiting - Genitourinary Genitourinary: no change in urinary stream, no dysuria, no flank pain, no hematuria - Musculoskeletal Musculoskeletal ROS IM: no numbness, no tingling - Integumentary Integumentary IM: erythema, no rash, no unusual bruising Additional comments: skin abscess - Neurological Neurological ROS: no confusion, no convulsions, no focal weakness, no numbness, no tingling, no tremor(s) - Hematologic/Lymphatic Hematologic/Lymphatic: no easy bruising - Constitutional Vitals: Temp Pulse Resp BP Pulse Ox 98.7 F 85 16 129/85 96 07/06/18 11:09 07/06/18 13:45 07/06/18 14:04 07/06/18 14:04 07/06/18 13:45 Exam: NAD - Head Head exam: Present: atraumatic, normocephalic - Eye Eye exam: Present: PERRL, conjuntiva pink, sclera anicteric Pupils: Present: PERRL - Neck Neck exam general surgery: Present: supple, trachea midline. Absent: lymphadeno caesar - Respiratory Respiratory exam: Present: CTAB. Absent: accessory muscle use, rales, rhonchi, wheezes - Cardiovascular Cardiovascular exam: Present: RRR, +S1, +S2. Absent: diastolic murmur, gallop, rubs, systolic murmur - GI/Abdominal GI/Abdominal exam: Present: normal bowel sounds, soft, no peritoneal signs. Absent: distended, tenderness - Rectal Rectal exam: Present: tenderness Additional comments: 2cm area of induration and redness in the right gluteal area - Extremities Exam Extremities exam: Present: warm, radial pulses palpable and symmetrical. Absent: calf tenderness, cyanotic, pedal edema - Neurological Exam Neurological exam: Present: CN II-XII intact, oriented X3, no focal deficits. Absent: pronater drift, facial droop, speech deficit - Skin Skin exam: Present: dry, intact Internal Med - H&P Results - Labs CBC & Chem 7: 07/06/18 12:35 07/06/18 12:35 Labs: Short CBC 07/06/18 Range/Units 12:35 WBC 15.5 H (4.3-11.1) K/mcL Hgb 13.7 (11.5-15.4) g/dL Hct 40.5 (35.3-44.9) % Plt Count 326 (140-400) K/mcL Neutrophils # 11.6 H (1.6-8.9) K/mcL BMP 07/06/18 12:35 Sodium 136 Potassium 4.0 Chloride 103 Carbon Dioxide 25 BUN 8 Creatinine 0.73 Glucose 107 H Calcium 9.7 - Impressions ITS Impressions Chest X-Ray 07/06/18 13:38 IMPRESSION: No acute cardiopulmonary process. D/ / 07/06/2018 13:57:54 Garrett Brown MD / [facility] Interpreting Provider: Garrett Brown MD - Assessment and plan (1) Cellulitis, gluteal, right Current Visit: Yes Status: Acute Assessment and plan: Right gluteal cellulitis with abscess of about 1week duration. Start on vanc and zosyn Ultrasound showed no drainable fluid. Surgery consult if abscess continues to increase in size. Follow blood cultures (2) Depression Current Visit: Yes Status: Acute Assessment and plan: Continue seroquel and amitriptyline Qualifiers: Depression Type: unspecified Qualified Code(s): F32.9 - Major depressive disorder, single episode, unspecified (3) Tobacco use Current Visit: Yes Status: Acute Assessment and plan: Counseled (4) DVT prophylaxis Current Visit: Yes Status: Acute Assessment and plan: heparin sc - Time Spent With Patient Total time spent is greater than 50% in coordination of care (as documented) at patient's floor/unit and/or counseling patient:
[2018-07-06] MEDS: Methocarbamol 750 MG TABLET PO SCH ×2 (16:35→20:41)
[2018-07-06] MEDS ORDERED: *HR* Heparin 5,000 UNIT/ML VIAL SQ SCH (18:00)
[2018-07-06] MEDS: Piperacillin/Tazobactam 3.375 GM in 0.9 % Sodium Chloride Mini Bag 100 ML IVPB SCH (20:40)
[2018-07-07] MEDS: *HR* OxyCODONE Immed Rel 5 MG TABLET PO PRN ×2 (03:26→12:45)
[2018-07-07] MEDS: Piperacillin/Tazobactam 3.375 GM in 0.9 % Sodium Chloride Mini Bag 100 ML IVPB SCH ×3 (04:26→21:45)
[2018-07-07 06:27] LABS: Basophils # 0.1 K/mcL (0.0-0.2); Basophils % 0.5 %; Eosinophils # 0.2 K/mcL (0.0-0.6); Eosinophils % 1.5 %; Hematocrit 33.2 % (35.3-44.9); Immature Granulocytes % 0.6 % (0-4); Lymphocytes # 3.3 K/mcL (0.6-4.6); Lymphocytes % 29.6 %; Mean Corpuscular HGB Conc 33.1 g/dL (31.6-35.5); Mean Corpuscular Hemoglobin 32.2 pg (28.0-33.3); Mean Corpuscular Volume 97.1 fL (83.0-100.0); Mean Platelet Volume 9.3 fL (9.4-12.4); Monocytes % 8.7 %; Neutrophils # 6.5 K/mcL (1.6-8.9); Platelet Count 279 K/mcL (140-400); Red Blood Count 3.42 M/mcL (3.82-4.97); Red Cell Distribution Width 12.8 % (11.5-14.5); Segmented Neutrophils % 59.1 %
[2018-07-07 06:46] LABS: BUN/Creatinine Ratio 9 (6-26); Blood Urea Nitrogen 6 mg/dL (6-20); Calcium 8.1 mg/dL (8.6-10.3); Carbon Dioxide 23 mEq/L (23-29); Chloride 109 mEq/L (98-107); Glucose 112 mg/dL (70-105); Osmolality,Calculated 286 (280-300); Phosphorous 2.7 mg/dL (2.7-4.5); Sodium 139 mEq/L (136-145); eGFR For Non-African Americans > 60 (> 60)
[2018-07-07] MEDS: Methocarbamol 750 MG TABLET PO SCH ×4 (09:04→21:42)
--- NOTE | 2018-07-07 12:24 | Internal Med Progress Note ---
Hospitalist Progress Note - Encounter Date of Encounter: 07/07/18 Time of Encounter: 09:00 - Subjective Interval History: Patient still have right buttock pain. No fever. Vitals are stable. - Exam Vitals: Temp Pulse Resp BP Pulse Ox 97.8 F 84 18 99/68 98 07/07/18 11:36 07/07/18 11:36 07/07/18 11:36 07/07/18 11:36 07/07/18 11:36 Exam: Pt is AAO x 3, in NAD HEENT: NC/AT, PERRL Neck: Supple, no JVD, no LAD Lungs: CTA b/l Heart: S1S2, RRR Abd: Soft, nontender, BS present Ext: ROM wnl, no pedal edema Neuro: No focal deficit Skin: Right-sided buttock significant redness, with hardness/tenderness. - Assessment and Plan (1) Tobacco use Current Visit: Yes Status: Acute Assessment and Plan: Counseled (2) Depression Current Visit: Yes Status: Acute Assessment and Plan: Continue seroquel and amitriptyline (3) Cellulitis, gluteal, right Current Visit: Yes Status: Acute Assessment and Plan: Right gluteal cellulitis without abscess of about 1week duration. - Continue vancomycin, pharmacy to dose, continue Zosyn - May consider deescalate abx per blood culture results and clinical picture - Ultrasound showed no drainable fluid. Surgery consult if abscess if continues to increase in size. (4) DVT prophylaxis Current Visit: Yes Status: Acute Assessment and Plan: heparin sc - Time Spent with Patient Total time spent is greater than 50% in coordination of care (as documented) at patient's floor/unit and/or counseling patient: 40 min Greater than 35 minutes Plan of Care Discussed with: patient Internal Medicine: Result - Labs CBC & Chem 7: 07/07/18 05:43 07/07/18 05:43 Labs: Short CBC 07/06/18 07/07/18 Range/Units 12:35 05:43 WBC 15.5 H 11.0 (4.3-11.1) K/mcL Hgb 13.7 11.0 L D (11.5-15.4) g/dL Hct 40.5 33.2 L (35.3-44.9) % Plt Count 326 279 (140-400) K/mcL Neutrophils # 11.6 H 6.5 (1.6-8.9) K/mcL BMP 07/06/18 07/07/18 12:35 05:43 Sodium 136 139 Potassium 4.0 4.0 Chloride 103 109 H Carbon Dioxide 25 23 BUN 8 6 Creatinine 0.73 0.70 Glucose 107 H 112 H Calcium 9.7 8.1 L - Impressions Impressions Chest X-Ray 07/06/18 13:38 IMPRESSION: No acute cardiopulmonary process. D/ / 07/06/2018 13:57:54 Garrett Brown MD / [facility] Interpreting Provider: Garrett Brown MD Consult Discharge Plan - Plan (2) Depression Qualifiers: Depression Type: unspecified Qualified Code(s): F32.9 - Major depressive diso rder, single episode, unspecified
[2018-07-08 04:45] LABS: Basophils # 0.1 K/mcL (0.0-0.2); Basophils % 0.5 %; Eosinophils # 0.2 K/mcL (0.0-0.6); Eosinophils % 1.8 %; Hematocrit 32.5 % (35.3-44.9); Hemoglobin 10.7 g/dL (11.5-15.4); Immature Granulocytes % 0.7 % (0-4); Lymphocytes # 3.2 K/mcL (0.6-4.6); Lymphocytes % 29.2 %; Mean Corpuscular HGB Conc 32.9 g/dL (31.6-35.5); Mean Corpuscular Hemoglobin 31.9 pg (28.0-33.3); Monocytes % 9.1 %; Neutrophils # 6.4 K/mcL (1.6-8.9); Platelet Count 279 K/mcL (140-400); Red Blood Count 3.35 M/mcL (3.82-4.97); Red Cell Distribution Width 12.7 % (11.5-14.5); Segmented Neutrophils % 58.7 %
[2018-07-08 05:04] LABS: BUN/Creatinine Ratio 9 (6-26); Blood Urea Nitrogen 6 mg/dL (6-20); Calcium 8.1 mg/dL (8.6-10.3); Carbon Dioxide 23 mEq/L (23-29); Chloride 111 mEq/L (98-107); Glucose 111 mg/dL (70-105); Osmolality,Calculated 288 (280-300); Potassium 3.6 mEq/L (3.5-5.1); Sodium 140 mEq/L (136-145); eGFR For Non-African Americans > 60 (> 60)
[2018-07-08] MEDS: Piperacillin/Tazobactam 3.375 GM in 0.9 % Sodium Chloride Mini Bag 100 ML IVPB SCH (06:34)
[2018-07-08] MEDS: *HR* OxyCODONE Immed Rel 5 MG TABLET PO PRN (07:12)
[2018-07-08 07:55] VITALS: BP 96/60
[2018-07-08] MEDS: Methocarbamol 750 MG TABLET PO SCH ×2 (08:40→11:23)
[2018-07-08] MEDS ORDERED: traMADol 50 MG TABLET PO PRN (10:46)
[2018-07-08] MEDS ORDERED: Ibuprofen 400 MG TABLET PO PRN (10:47)
--- NOTE | 2018-07-08 10:53 | Discharge Summary ---
Orders not resulted at time of discharge: Pending orders 07/06/18 13:21 Culture,Blood [BC] Stat Date of Encounter: 07/08/18 Time of Encounter: 09:00 - Discharge Diagnosis (1) Tobacco use Priority: Secondary Status: Acute (2) Depression Priority: Secondary Status: Acute Qualifiers: Depression Type: unspecified Qualified Code(s): F32.9 - Major depressive disorder, single episode, unspecified (3) Cellulitis, gluteal, right Priority: Primary Status: Acute (4) DVT prophylaxis Priority: Secondary Status: Acute Hospital course: Ms. Key is a 52 year old female admitted for right buttock boil/cellulitis. Patient was placed on IV antibiotics Vanco and Zosyn. After treatment, her pain is getting better. The hardness size has improved. WBC getting down to normal. Patient has no fever. The boil self drained. Blood culture no growth after 3 days. Will DC patient home on by mouth antibiotics. Follow up with PCP as outpatient. I have seen and examined patient today. Patient is awake alert oriented 3. Still complaining of moderate pain on right buttock. Vitals are stable. Will discharge patient on by mouth clindamycin. Will also give patient pain medication and probiotics for C. difficile prevention. Discharge discussed with: patient Time spent discussing smoking cessation with patient: 3 to 10 minutes - Time Spent with Patient Total time spent providing and/or coordinating discharge services: 25 minute Less than 30 minutes - Discharge Medications Prescriptions: RX: OxyCODONE Immed Rel [Roxicodone 5 MG] 5 mg PO Q6HR PRN 5 Days #20 tablet PRN Reason: Severe Pain RX: Clindamycin [Cleocin] 300 mg PO Q8HR 7 Days #42 capsule RX: Lactobacillus [Culturelle] 2 each PO DAILY 10 Days #20 cap.[email or web address] Home Medications: RX: Amitriptyline HCl 150 mg PO DAILY 03/03/17 [History] RX: Methocarbamol [Robaxin-750] 750 mg PO TID PRN 03/03/17 [History] RX: Zolpidem [Ambien] 10 mg PO DAILY PRN 03/03/17 [History] RX: Acetaminophen/Butalbital/Caffe [Fioricet] 1 - 2 tab PO DAILY PRN 03/19/18 [History] RX: Atorvastatin Calcium [Lipitor] 20 mg PO DAILY 03/19/18 [History] RX: Quetiapine Fumarate [Seroquel] 200 mg PO DAILY 03/19/18 [History] RX: Alendronate Sodium [Fosamax] 10 mg PO DAILY 07/07/18 [History] RX: Buspirone HCl [Buspar] 15 mg PO BID 07/07/18 [History] RX: Calcium Carbonate [Calcium] 600 mg PO BID 07/07/18 [History] RX: Cholecalciferol (Vitamin D3) [Vitamin D3] 1,000 unit PO DAILY 07/07/18 [History] RX: Etodolac 300 mg PO 1-2XD 07/07/18 [History] RX: Clindamycin [Cleocin] 300 mg PO Q8HR 7 Days #42 capsule 07/08/18 [Rx] RX: Lactobacillus [Culturelle] 2 each PO DAILY 10 Days #20 cap.[email or web address] 07/08/18 [Rx] RX: OxyCODONE Immed Rel [Roxicodone 5 MG] 5 mg PO Q6HR PRN 5 Days #20 tablet 07/08/18 [Rx] Allergies/Adverse Reactions: Allergy/AdvReac Type Severity Reaction Status Date / Time ciprofloxacin [From Cipro] AdvReac Nausea Verified 07/07/18 14:28 codeine AdvReac Nausea Verified 07/07/18 14:28 Date of admission: 07/06/18 13:59 Primary care physician: Stormy Ramos Discharging clinician: Ignacio Waller Anticipated date of discharge: 07/08/18 - Constitutional Vitals: Temp Pulse Resp BP Pulse Ox 98.7 F 79 16 96/60 98 07/08/18 07:54 07/08/18 07:54 07/08/18 07:54 07/08/18 07:54 07/08/18 07:54 Exam: Pt is AAO x 3, in NAD HEENT: NC/AT, PERRL Neck: Supple, no JVD, no LAD Lungs: CTA b/l Heart: S1S2, RRR Abd: Soft, nontender, BS present Ext: ROM wnl, no pedal edema Neuro: No focal deficit Skin: Right-sided buttock redness, with hardness/tenderness, self drained. - Patient Status Disposition: Home, Self-Care Condition: Good Functional capacity at discharge: independent ambulation Overall status at discharge: patient is progressing back to baseline - Discharge Instructions Follow Up With: Stormy Ramos [Primary Care Provider] - Forms: ED Satisfaction Letter - Diet and Activity Activity: increase activity as tolerated Diet: advance to your usual diet
[2018-07-08] MEDS ORDERED: Aminoglycoside Consult 1 EACH MC ONE (13:30)
[2018-07-09] MEDS ORDERED: Lactobacillus 1 EACH CAP.SPRINK PO SCH (09:00)
== END 2018-07-08 13:31 | disposition home or self-care (01) ==
LOC: EMEROOARM 11:02 → 3BNU 11:02
PROVIDERS: ADMIT Student in an Organized Health Care Education/Training Program; ATTEND Student in an Organized Health Care Education/Training Program